=== PATIENT | female | born 1970 | race Caucasian/White ===

== ENCOUNTER 2023-02-28 07:37 | Day surgery (SDC) | payer BC ==
[~2023-02-28] VITALS: Ht 157.5 cm; Wt 73.5 kg
[2023-02-28 08:29] LABS: HCG,QUAL RESULT NEGATIVE (NEGATIVE)
[2023-02-28] MEDS: MIDAZOLAM HCL 5 MG/5 ML VIAL ONE ×2 (08:55→08:57)
[2023-02-28] MEDS: fentaNYL CITRATE/PF 100 MCG/2 ML AMP ONE ×2 (08:55→08:57)
[2023-02-28 09:00] VITALS: O2SAT 100
[2023-02-28 13:15] VITALS: BP_SYST 126; PULSE 78; RESP 16
== END 2023-02-28 10:50 | disposition home or self-care (01) ==
LOC: SDS 07:37 → SMU 07:41 → SDS 10:50
PROVIDERS: ATTEND Internal Medicine
DX: Z12.11 Encounter for screening for malignant neoplasm of colon (principal); K64.8 Other hemorrhoids
CPT/HCPCS: 45378; 99152; 84703; G0378; J2250; J3010

== ENCOUNTER 2023-10-30 06:26 | Day surgery (SDC) | payer BC ==
[~2023-10-30] VITALS: Ht 162.6 cm; Wt 68.5 kg
[2023-10-30] MEDS ORDERED: fentaNYL CITRATE/PF 100 MCG/2 ML AMP ONE (07:03)
[2023-10-30] MEDS ORDERED: MIDAZOLAM HCL 5 MG/5 ML VIAL ONE (07:03)
[2023-10-30 09:33] VITALS: O2SAT 99
[2023-10-30 14:04] VITALS: BP_SYST 101; PULSE 61; RESP 22
[2023-10-30 14:50] LABS: HCG,QUAL RESULT NEGATIVE (NEGATIVE)
== END 2023-10-30 08:50 | disposition home or self-care (01) ==
LOC: SDS 06:26 → SMU 06:29 → SDS 08:50
PROVIDERS: ATTEND Internal Medicine
DX: Z12.11 Encounter for screening for malignant neoplasm of colon (principal); K64.8 Other hemorrhoids
CPT/HCPCS: 45378; 99152; 84703; G0378; J2250; J3010